=== PATIENT | male | born 1995 | race Caucasian/White ===

== ENCOUNTER 2018-03-16 20:27 | Emergency (ER) | payer SELFPAY ==
[2018-03-16] MEDS ORDERED: Acetaminophen/Codeine 30-300mg Tablet ONE (21:17)
[2018-03-16] MEDS ORDERED: Clindamycin 150 MG CAP ONE (21:18)
== END 2018-03-16 21:34 | disposition home or self-care (01) ==
LOC: ERS 20:27
DX: K08.89 Other specified disorders of teeth and supporting structures (principal); F41.9 Anxiety disorder, unspecified; F32.9 Major depressive disorder, single episode, unspecified; F17.210 Nicotine dependence, cigarettes, uncomplicated
CPT/HCPCS: 99283

== ENCOUNTER 2018-07-16 20:06 | Emergency (ER) | payer SELFPAY | END 2018-07-16 20:16 | disposition left against medical advice (07) | LOC: ERS 20:06 | DX: Z53.21 Procedure and treatment not carried out due to patient leaving prior to being seen by health care provider (principal) ==